=== PATIENT | male | born 1995 | race Caucasian/White ===

== ENCOUNTER 2017-05-03 05:15 | Emergency (ER) | payer OTHER ==
[~2017-05-03] VITALS: Ht 180.3 cm; Wt 66.1 kg
[2017-05-03 05:17] VITALS: TEMP 36.8; Ht 180.3 cm; Wt 66.1 kg
[2017-05-03] MEDS ORDERED: IBUPROFEN 600 MG TAB PO STA (05:22)
[2017-05-03] MEDS ORDERED: ALBUT/IPRATROP 3MG/0.5MG NEB 3 ML VIAL INH STA (05:22)
[2017-05-03 05:30] VITALS: O2SAT 97
[2017-05-03] MEDS ORDERED: ALBUTEROL HFA 8 GM INHALER INH ONE (05:30)
--- NOTE | 2017-05-03 05:52 | EMERGENCY ROOM VISIT NOTE ---
History First contact with patient: 05:17 Chief Complaint: FEVER Stated Complaint: FEVER/COUGH History of Present Illness The patient is a 21 year old male who presents to the Emergency Room with complaints of cough, congestion, runny nose for the past week who developed a low-grade temperature of 99.5 this morning. Patient was concerned and called EMS. He has not taken anything for his symptoms. He quit smoking one month ago. Patient is from [place] and has been here since January. Patient denies chest pain, dyspnea, neck stiffness, sore throat, abdominal pain, vomiting, diarrhea. Other people at school are sick. No travel outside the [place] within the past 3 months. Review of Systems See HPI for pertinent positives & negatives. A total of 10 systems reviewed and were otherwise negative. Past Medical/Surgical History None Social History Smoking Status: Former Smoker Drug Use: none Marital Status: single Occupation Status: [employer] student Current/Historical Medications No Active Prescriptions or Reported Meds Physical Exam Vital Signs Date Time Temp Pulse Resp B/P (MAP) Pulse Ox O2 Delivery O2 Flow Rate FiO2 05/03/17 05:30 97 Room Air 05/03/17 05:17 36.8 117 20 142/94 97 Room Air Physical Exam VITALS: Vitals are noted on the nurse's note and reviewed by myself. Vital signs stable. GENERAL: Pleasant male anxious-appearing, in no acute distress, nondiaphoretic, well-developed well-nourished. SKIN: The skin was without rashes, erythema, edema, or bruising. There is no tenting of the skin. Capillary reflex less than 2 seconds. HEAD: Normocephalic atraumatic. EARS: External auditory canals clear, tympanic membranes pearly nassar without erythema or effusion bilaterally. EYES: Pupils equal round and reactive to light and accommodation. Conjunctivae without injection, sclerae without icterus. Extraocular movements intact. NOSE: Patent, turbinates without inflammation or discharge. No sinus tenderness. MOUTH: Mucous membranes moist. Pharynx without erythema or exudate. Uvula midline. Airway patent. Tongue does not deviate. NECK: Supple without nuchal rigidity. No lymphadenopathy. No thyromegaly. Cervical spine is nontender. No JVD. No meningeal signs HEART: Regular rate and rhythm without murmurs gallops or rubs. LUNGS: Mild diffuse end expiratory wheezes, without rales or rhonchi. No dullness to percussion. No retractions or accessory muscle use. ABDOMEN: Positive bowel sounds x 4. Normal tympanic percussion. Soft, nontender, without masses or organomegaly. Molina sign negative. No guarding or rebound tenderness. MUSCULOSKELETAL: No muscle atrophy, erythema, or edema noted. NEURO: Patient was alert and oriented to person place and time. Normal sensation to light and sharp touch. No focal neurological deficits. Medical Decision & Procedures Medications Administered Medications (Trade) Dose Ordered Sig/Da Route Start Time Stop Time Status Last Admin Dose Admin Albuterol/ Ipratropium (Duoneb) 3 ml NOW STAT INH 05/03/17 05:22 05/03/17 05:24 DC 05/03/17 05:26 3 ML Ibuprofen (Motrin Tab) 600 mg NOW STAT PO 05/03/17 05:22 05/03/17 05:24 DC 05/03/17 05:27 600 MG Albuterol (Ventolin Hfa Inhaler) 2 puffs ONE ONCE INH 05/03/17 05:30 05/03/17 05:31 DC 05/03/17 05:28 2 PUFFS ED Course Prior records/ancillary studies reviewed. Triage Nursing notes reviewed. Additional history obtained from EMS. The patient's history was concerning for fever. Differential diagnosis: Etiologies such as viral syndrome, otitis, pharyngitis, pneumonia, influenza, meningitis, urinary tract infection, sepsis, bacteremia, as well as others were entertained. Physical examination: Patient is alert, oriented and well-appearing ER treatment provided: Nebulizer, Motrin On reassessment the patient felt better. Diagnostics interpreted by me: Imaging studies: Chest x-ray with no acute consolidation, pneumothorax or free air per my interpretation and reviewed by attending This appears to be consistent with acute bronchitis. Patient was neurovascularly and neurologically intact. He is well-appearing. Stable vital signs. He is advised take cold medicines as directed and to follow-up health services in a few days or here in the ER sooner for high fevers, lethargy, neck stiffness, worsening signs or symptoms or as needed. By the evaluation outlined above emergent etiologies such as otitis, pharyngitis, pneumonia, meningitis, urinary tract infection, sepsis, bacteremia, as well as others were deemed relatively unlikely. The pt informed about the findings as listed above. All questions were answered and pleased with the treatment. Return instructions were outlined and the patient was discharged in stable condition. Referral: The patient was referred back to their primary care physician for follow-up in 2 to 3 days for a recheck of the current condition. Medical Decision As above Medication Reconcilliation Current Medication List: was personally reviewed by me Blood Pressure Screening Patient's blood pressure: Normal blood pressure Impression Primary Impression: Acute bronchitis Departure Information Dispostion Home / Self-Care Condition GOOD Prescriptions No Active Prescriptions or Reported Meds Patient Instructions My [facility] Additional Instructions Acetaminophen(Tylenol) may be used for fever or pain. Use 1000mg every six hours as needed. Avoid using more than 3000mg in a 24 hour period. (AND/OR) Ibuprofen(Motrin, Advil) may be used for fever or pain. Use 600mg every six hours as needed. Take with food. Avoid using more than 2400mg in a 24 hour period. Do not use 2400mg per day for more than three consecutive days without physician direction. Prolonged inappropriate use can lead to stomach upset or ulcers. Afrin nasal spray: 2-3 sprays to each nostril twice daily as needed for congestion. Do not use for more than 3-4 days because it can lead to worsening rebound congestion. Pseudoephedrine(Sudaphed): 30-60mg every 6 hours as needed for nasal congestion. Do not take this with other stimulant products or supplements. Albuterol Inhaler: Take 2 puffs four times daily for seven days, then as needed. Rest and drink plenty of fluids. Controlling your fever with Tylenol and Ibuprofen as above will make you feel better. Wash your hands after nose blowing, sneezing, or coughing. Most germs are spread through contact, therefore improper hygiene may result in your close contacts and loved ones becoming ill just like you. Continue current medications. Return to the ER for severe headache, neck stiffness, chest pain, difficulty breathing, fevers, vomiting, worsening of your condition, or as needed. Follow up with your primary physician this week for a recheck of your current condition. Problem Qualifiers Primary Impression: Acute bronchitis Bronchitis organism: unspecified organism Qualified Codes: J20.9 - Acute bronchitis, unspecified
[2017-05-03 06:07] VITALS: BP 143/83; PULSE 116; O2SAT 96
--- NOTE | 2017-05-03 07:03 | DIAGNOSTIC IMAGING REPORT ---
CHEST 2 VIEWS ROUTINE CLINICAL HISTORY: Cough. Fever. COMPARISON STUDY: No previous studies for comparison. FINDINGS: Lung volumes are normal. No pneumothorax or pleural effusion is present. There is no consolidation. Pulmonary vascularity is normal. An azygos fissure is noted. Cardiomediastinal silhouette is normal. IMPRESSION: No acute cardiopulmonary findings. Electronically signed by: Elio Mccoy M.D. 05/03/2017 7:02 AM Dictated Date/Time: 05/03/2017 7:02 AM
== END 2017-05-03 06:10 | disposition home or self-care (01) ==
LOC: C.EDB 05:17
DX: J20.9 Acute bronchitis, unspecified (principal); Z87.891 Personal history of nicotine dependence

== ENCOUNTER 2017-05-05 11:51 | Emergency (ER) | payer OTHER ==
[~2017-05-05] VITALS: Ht 175.3 cm; Wt 68.9 kg
[2017-05-05 11:59] VITALS: TEMP 37.3; Ht 175.3 cm; Wt 68.9 kg
[2017-05-05] MEDS ORDERED: ACET-1256 PO (12:26)
[2017-05-05] MEDS ORDERED: VNTHFA/IN INH (12:26)
[2017-05-05] MEDS ORDERED: IBUP-103 PO (12:26)
--- NOTE | 2017-05-05 13:09 | DIAGNOSTIC IMAGING REPORT ---
CHEST 2 VIEWS ROUTINE CLINICAL HISTORY: 21 years-old Male presenting with cough eval for pna, sore throat, fever for 3 days. TECHNIQUE: PA and lateral views of the chest were obtained. COMPARISON: 05/03/2017. FINDINGS: Cardiomediastinal silhouette normal. Lungs and pleural spaces clear. Osseous structures normal. Upper abdomen normal. IMPRESSION: 1. No acute cardiopulmonary disease. Electronically signed by: Harish Grimm M.D. 05/05/2017 1:08 PM Dictated Date/Time: 05/05/2017 1:07 PM
[2017-05-05 13:26] VITALS: BP 114/69; PULSE 87; O2SAT 97
--- NOTE | 2017-05-05 13:59 | EMERGENCY ROOM VISIT NOTE ---
History Report prepared by Faviola: Genesis Shirley Under the Supervision of: Dr. Louis Thompson M.D. First contact with patient: 12:05 Chief Complaint: SORETHROAT Stated Complaint: PAIN IN THROAT, COUGH, FEVER History of Present Illness The patient is a 21 year old male who presents to the Emergency Room with complaints of persistent sore throat starting 2 days ago. The patient has been feeling sick for the past 2 weeks. He has had a cough, rhinorrhea, and nasal congestion. Two days ago, he started having an "extreme fever" of 99.5. He came to the ED at that time. He presents to the ED again because his symptoms are not improving and he is getting worse. He now has a sore throat and his chest hurts when he coughs. He denies any vomiting or abdominal pain. He denies any history of asthma or other medical problems. He is a [employer] student. He has some friends are sick, but notes that he is not that close with them. Source of History: patient Onset: 2 days ago Position: throat Quality: other (sore) Timing: other (persistent) Associated Symptoms: + fevers, + cough, No vomiting, No abdominal pain Note: Pt reports rhinorrhea, nasal congestion, chest pain with coughing. Review of Systems See HPI for pertinent positives & negatives. A total of 10 systems reviewed and were otherwise negative. Past Medical & Surgical Medical Problems: (1) No significant past medical history Family History No pertinent family history stated. Social History Smoking Status: Former Smoker Drug Use: none Marital Status: single Occupation Status: [employer] student Current/Historical Medications Scheduled PRN Acetaminophen (Tylenol), 1,000 MG PO Q6 PRN for Pain Albuterol Hfa (Ventolin Hfa), 2-4 PUFFS INH Q6H PRN for SOB/Wheezing Ibuprofen Tab (Advil), 200-600 MG PO Q4H PRN for Pain Allergies Coded Allergies: No Known Allergies (Unverified , 05/05/17) Physical Exam Vital Signs Date Time Temp Pulse Resp B/P (MAP) Pulse Ox O2 Delivery O2 Flow Rate FiO2 05/05/17 13:26 87 20 114/69 97 05/05/17 11:59 37.3 110 20 124/84 96 Room Air 05/05/17 11:59 96 Room Air Physical Exam He is well-appearing with an occasional cough. Constitutional: Vital signs reviewed. Eyes: Pupils are equal round reactive to light. Conjunctiva are noninjected. ENT: Pharynx is erythematous without exudate. Mucous membranes are moist. Neck supple without meningeal signs. Respiratory: Clear to auscultation bilaterally. Breath sounds are equal bilaterally. Cardiovascular: Regular rate and rhythm. No rubs or gallops. GI: Soft, nondistended and nontender. Bowel sounds are present. No splenomegaly. Musculoskeletal: No peripheral edema. No lower extremity tenderness. Integumentary: No cyanosis. Neurological: The patient is awake and alert. No focal deficits. Psychiatric: Normal affect. Medical Decision & Procedures ER Provider Diagnostic Interpretation: X-ray results as stated below per interpretation by me and the radiologist: CHEST 2 VIEWS ROUTINE CLINICAL HISTORY: 21 years-old Male presenting with cough eval for pna, sore throat, fever for 3 days. TECHNIQUE: PA and lateral views of the chest were obtained. COMPARISON: 05/03/2017. FINDINGS: Cardiomediastinal silhouette normal. Lungs and pleural spaces clear. Osseous structures normal. Upper abdomen normal. IMPRESSION: 1. No acute cardiopulmonary disease. Electronically signed by: Harish Grimm M.D. 05/05/2017 1:08 PM Dictated Date/Time: 05/05/2017 1:07 PM ED Course 1210: The patient was evaluated in room C2B. A complete history and physical exam was performed. 1311: Upon reevaluation, the patient was resting comfortably. I discussed tonight's findings with him. I answered all his questions. He declines antibiotics. He verbalized agreement of the treatment plan. He was discharged home. Medical Decision This is a 21-year-old male who presents with cold symptoms. Differential diagnosis includes strep pharyngitis, URI, bronchitis, pneumonia. I did perform a limited focused review of portions of the patient's old chart on the electronic medical record. The patient was here on the (2 days ago) for rhinorrhea and cough. He was treated with duoneb, and discharged with albuterol inhaler. I did evaluate the patient as noted above. He is presenting with cold symptoms for about 2 weeks. He has not had a temperature over 99.5. He is here today because he is not getting better and his cough is getting worse and he states his throat hurts more than it did when he left presenting here. I did obtain a rapid strep test which was negative. A throat culture was sent. I did order and personally review the patient's chest x-ray as described above. There is no evidence of pneumonia. I did discuss the test results with the patient. We discussed treatment with antibiotic given the prolonged course of his illness but the patient preferred not to have the antibiotics because he was concerned about the "risks." He was advised follow with [facility] and discharged in good condition. Medication Reconcilliation Current Medication List: was personally reviewed by me Blood Pressure Screening Patient's blood pressure: Normal blood pressure Blood pressure disposition: Did not require urgent referral Impression Primary Impression: Acute pharyngitis Additional Impression: Acute bronchitis Scribe Attestation The scribe's documentation has been prepared under my direct and personally reviewed by me in its entirety. I confirm that the note above accurately reflects all work, treatment, procedures, and medical decision making performed by me. Departure Information Dispostion Home / Self-Care Referrals No Doctor, Assigned (PCP) Forms HOME CARE DOCUMENTATION FORM, IMPORTANT VISIT INFORMATION Patient Instructions Bronchitis Acute, My [facility], Sore Throat - [facility] Additional Instructions You have been examined and treated today on an emergency basis only. This is not a substitute for, or an effort to provide, complete comprehensive medical care. It is impossible to recognize and treat all injuries or illnesses in a single emergency department visit. It is therefore important that you follow up closely with [facility]. Call as soon as possible for an appointment. Return for worsening symptoms or if you develop fever over 101, vomiting, difficulty breathing or any other concerning symptoms. Problem Qualifiers Primary Impression: Acute pharyngitis Pharyngitis/tonsillitis etiology: unspecified etiology Qualified Codes: J02.9 - Acute pharyngitis, unspecified Additional Impression: Acute bronchitis Bronchitis organism: unspecified organism Qualified Codes: J20.9 - Acute bronchitis, unspecified
[2017-05-06] MEDS ORDERED: AMOX500C3 PO (13:18)
== END 2017-05-05 13:28 | disposition home or self-care (01) ==
LOC: C.EDB 11:52 → C.EDC 13:28
DX: J02.9 Acute pharyngitis, unspecified (principal); J20.9 Acute bronchitis, unspecified; Z87.891 Personal history of nicotine dependence

== ENCOUNTER 2017-05-06 12:29 | Emergency (ER) | payer OTHER ==
[~2017-05-06] VITALS: Ht 175.3 cm; Wt 67.7 kg
[~2017-05-06 12:29] MED LIST: ACET-1256 PO; IBUP-103 PO; VNTHFA/IN INH
[2017-05-06 12:33] VITALS: TEMP 37; Ht 175.3 cm; Wt 67.7 kg
--- NOTE | 2017-05-06 13:16 | EMERGENCY ROOM VISIT NOTE ---
ED Visit Note First contact with patient: 13:03 CHIEF COMPLAINT: Sore throat / HISTORY OF PRESENT ILLNESS: This 21-year-old male presents the ER with chief complaint that he would like antibiotics. The patient was seen here yesterday for sore throat. He states he was offered antibiotics but declined. His rapid strep was negative. He states a culture was also taken. The patient states he was also seen here 3 days ago for a cough. He states that has not progressed although last night he was coughing and threw up on one occasion. He denies any nausea or vomiting today. The patient denies any fever. The patient states he continues to have a sore throat. REVIEW OF SYSTEMS: 6 system review was performed and was negative unless stated otherwise in history of present illness. PMH: The patient is healthy; there is no significant medical or surgical history. SOCIAL HISTORY: Patient is a [employer] student. The patient lives alone. The patient denies any tobacco or alcohol use. PHYSICAL EXAM: Vital Signs were reviewed: Reviewed Nurse's notes and agree. Oxygen saturation is 96 % on room air which is normal . GENERAL: 21-year-old male appears in no acute distress. MENTAL STATUS: Alert, oriented, coherent. EARS: Canals clear. TMs good light reflex, no erythema or fluid level noted. NOSE: Nasal mucosa with moderate erythema engorgement. PHARYNX: Moderate erythema, no edema noted. No exudate noted. Airway is adequate. NECK: Supple, non-tender. No lymphadenopathy noted. LUNGS: Clear to auscultation without wheezes rales or rhonchi. CARDIAC: Regular rate and rhythm without murmur. SKIN : No rashes noted. EMERGENCY COURSE: I reviewed the patient's EMR. His throat culture is now growing out strep. The patient was informed of this finding. He was discharged home in stable condition. DIAGNOSIS: Strep pharyngitis, acute bronchitis DISCHARGE INSTRUCTIONS & TREATMENT: Continue inhaler as needed for cough and wheezing. Take amoxicillin as prescribed. If symptoms persist or worsen, follow with [facility]. Current/Historical Medications Scheduled PRN Acetaminophen (Tylenol), 1,000 MG PO Q6 PRN for Pain Albuterol Hfa (Ventolin Hfa), 2-4 PUFFS INH Q6H PRN for SOB/Wheezing Ibuprofen Tab (Advil), 200-600 MG PO Q4H PRN for Pain Allergies Coded Allergies: No Known Allergies (Unverified , 05/05/17) Vital Signs Date Time Temp Pulse Resp B/P (MAP) Pulse Ox O2 Delivery O2 Flow Rate FiO2 05/06/17 12:33 37.0 115 20 127/76 96 Room Air Departure Information Referrals No Doctor, Assigned (PCP) Patient Instructions [facility]
[2017-05-06] MEDS ORDERED: AMOX500C3 PO (13:18)
[2017-05-06 13:26] VITALS: BP 117/75; PULSE 95; O2SAT 96
== END 2017-05-06 13:26 | disposition home or self-care (01) ==
LOC: C.EDB 12:32 → C.EDD 13:26
DX: J02.0 Streptococcal pharyngitis (principal); J20.9 Acute bronchitis, unspecified

== ENCOUNTER 2017-05-09 01:13 | Emergency (ER) | payer OTHER ==
[~2017-05-09] VITALS: Ht 175.3 cm; Wt 68.9 kg
[~2017-05-09 01:13] MED LIST changes: +AMOX500C3 PO
[2017-05-09 01:15] VITALS: TEMP 36.6; Ht 175.3 cm; Wt 68.9 kg
[2017-05-09] MEDS ORDERED: ALBUT/IPRATROP 3MG/0.5MG NEB 3 ML VIAL INH STA (01:26)
[2017-05-09 01:58] LABS: BASO % 0.1 %; BASO ABS # 0.01 K/uL (0-0.2); COMPLETE YES; EOS % 2.2 %; HEMATOCRIT 41.2 % (42-52); IG% 0.3 %; LYMPH % 46.8 %; LYMPH ABS # 3.33 K/uL (1.2-3.4); MEAN CELL VOLUME 82.2 fL (80-100); MEAN CORPUSCULAR HEMOGLOBIN 28.7 pg (25-34); MEAN PLATELET VOLUME 9.6 fL (7.4-10.4); MONO % 6.5 %; NEUT % 44.1 %; PLATELET COUNT 274 K/uL (130-400); RED BLOOD COUNT 5.01 M/uL (4.7-6.1); WHITE BLOOD COUNT 7.12 K/uL (4.8-10.8)
[2017-05-09 02:11] LABS: ALT/SGPT 25 U/L (12-78); AST/SGOT 16 U/L (15-37); BLOOD UREA NITROGEN 12 mg/dl (7-18); BUN/CREATININE RATIO 15.4 (10-20); CARBON DIOXIDE 30 mmol/L (21-32); CHLORIDE 107 mmol/L (98-107); CREATININE 0.79 mg/dl (0.60-1.40); GLUCOSE 132 mg/dl (70-99); POTASSIUM 3.6 mmol/L (3.5-5.1); SODIUM 142 mmol/L (136-145)
[2017-05-09 02:13] LABS: ALKALINE PHOSPHATASE 119 U/L (45-117)
[2017-05-09 02:31] VITALS: BP 133/80; PULSE 113; O2SAT 98
--- NOTE | 2017-05-09 02:45 | EMERGENCY ROOM VISIT NOTE ---
History First contact with patient: 01:19 Chief Complaint: ILLNESS Stated Complaint: ILLNESS History of Present Illness The patient is a 21 year old male who presents to the Emergency Room with complaints of cough, congestion and chest pain for the past few days. Patient states they're always feeling better but tonight he had an episode of difficulty breathing and chest pain which prompted him to come to the ER. This is now resolved. Patient had a negative strep test and was placed on antibiotics. Patient had a chest x-ray and laboratory workup with his last 3 visits which were all unremarkable. Patient's throat culture still negative. Patient states overall he is feeling better but was concerned tonight when he had chest pain and coughing and wheezing. Patient then called EMS and came here. Patient states he feels much better now. Patient denies current chest pain, dyspnea, headache, sore throat, abdominal pain, vomiting, diarrhea. Patient states he was just concerned and wants to make sure he is okay. Review of Systems See HPI for pertinent positives & negatives. A total of 10 systems reviewed and were otherwise negative. Past Medical/Surgical History Medical Problems: (1) No significant past medical history Social History Smoking Status: Former Smoker Drug Use: none Marital Status: single Occupation Status: [employer] Current/Historical Medications Scheduled Amoxicillin (Amoxil), 500 MG PO TID Scheduled PRN Acetaminophen (Tylenol), 1,000 MG PO Q6 PRN for Pain Albuterol Hfa (Ventolin Hfa), 2-4 PUFFS INH Q6H PRN for SOB/Wheezing Ibuprofen Tab (Advil), 200-600 MG PO Q4H PRN for Pain Physical Exam Vital Signs Date Time Temp Pulse Resp B/P (MAP) Pulse Ox O2 Delivery O2 Flow Rate FiO2 05/09/17 02:31 113 18 133/80 98 Room Air 05/09/17 01:49 Room Air 05/09/17 01:39 100 05/09/17 01:15 36.6 98 18 138/81 96 Room Air Physical Exam VITALS: Vitals are noted on the nurse's note and reviewed by myself. Vital signs stable. GENERAL: Pleasant anxious-appearing male, in no acute distress, nondiaphoretic, well-developed well-nourished. SKIN: The skin was without rashes, erythema, edema, or bruising. There is no tenting of the skin. Capillary reflex less than 2 seconds. HEAD: Normocephalic atraumatic. EARS: External auditory canals clear, tympanic membranes pearly nassar without erythema or effusion bilaterally. EYES: Pupils equal round and reactive to light and accommodation. Conjunctivae without injection, sclerae without icterus. Extraocular movements intact. NOSE: Patent, turbinates without inflammation or discharge. No sinus tenderness. MOUTH: Mucous membranes moist. Pharynx without erythema or exudate. Uvula midline. Airway patent. Tongue does not deviate. NECK: Supple without nuchal rigidity. No lymphadenopathy. No thyromegaly. Cervical spine is nontender. No JVD. HEART: Regular rate and rhythm without murmurs gallops or rubs. LUNGS: Clear to auscultation bilaterally without wheezes, rales or rhonchi. No dullness to percussion. No retractions or accessory muscle use. ABDOMEN: Positive bowel sounds x 4. Normal tympanic percussion. Soft, nontender, without masses or organomegaly. Molina sign negative. No guarding or rebound tenderness. MUSCULOSKELETAL: No muscle atrophy, erythema, or edema noted. NEURO: Patient was alert and oriented to person place and time. Normal sensation to light and sharp touch. No focal neurological deficits. Medical Decision & Procedures Laboratory Results 05/09/17 01:40 Red Blood Count 5.01, Mean Corpuscular Volume 82.2, Mean Corpuscular Hemoglobin 28.7, Mean Corpuscular Hemoglobin Concent 35.0, Mean Platelet Volume 9.6, Neutrophils (%) (Auto) 44.1, Lymphocytes (%) (Auto) 46.8, Monocytes (%) (Auto) 6.5, Eosinophils (%) (Auto) 2.2, Basophils (%) (Auto) 0.1, Neutrophils # (Auto) 3.14, Lymphocytes # (Auto) 3.33, Monocytes # (Auto) 0.46, Eosinophils # (Auto) 0.16, Basophils # (Auto) 0.01 05/09/17 01:40 Test 05/09/17 01:40 White Blood Count 7.12 K/uL (4.8-10.8) Red Blood Count 5.01 M/uL (4.7-6.1) Hemoglobin 14.4 g/dL (14.0-18.0) Hematocrit 41.2 % (42-52) Mean Corpuscular Volume 82.2 fL (80-100) Mean Corpuscular Hemoglobin 28.7 pg (25-34) Mean Corpuscular Hemoglobin Concent 35.0 g/dl (32-36) Platelet Count 274 K/uL (130-400) Mean Platelet Volume 9.6 fL (7.4-10.4) Neutrophils (%) (Auto) 44.1 % Lymphocytes (%) (Auto) 46.8 % Monocytes (%) (Auto) 6.5 % Eosinophils (%) (Auto) 2.2 % Basophils (%) (Auto) 0.1 % Neutrophils # (Auto) 3.14 K/uL (1.4-6.5) Lymphocytes # (Auto) 3.33 K/uL (1.2-3.4) Monocytes # (Auto) 0.46 K/uL (0.11-0.59) Eosinophils # (Auto) 0.16 K/uL (0-0.5) Basophils # (Auto) 0.01 K/uL (0-0.2) RDW Standard Deviation 36.2 fL (36.4-46.3) RDW Coefficient of Variation 12.1 % (11.5-14.5) Immature Granulocyte % (Auto) 0.3 % Immature Granulocyte # (Auto) 0.02 K/uL (0.00-0.02) Anion Gap 5.0 mmol/L (3-11) Est Creatinine Clear Calc Drug Dose 146.6 ml/min Estimated GFR () > 150.0 Estimated GFR (Non- 130.2 BUN/Creatinine Ratio 15.4 (10-20) Calcium Level 9.0 mg/dl (8.5-10.1) Total Bilirubin 0.6 mg/dl (0.2-1) Direct Bilirubin 0.2 mg/dl (0-0.2) Aspartate Amino Transf (AST/SGOT) 16 U/L (15-37) Alanine Aminotransferase (ALT/SGPT) 25 U/L (12-78) Alkaline Phosphatase 119 U/L (45-117) Total Protein 7.6 gm/dl (6.4-8.2) Albumin 4.0 gm/dl (3.4-5.0) Medications Administered Medications (Trade) Dose Ordered Sig/Da Route Start Time Stop Time Status Last Admin Dose Admin Albuterol/ Ipratropium (Duoneb) 3 ml NOW STAT INH 05/09/17 01:26 05/09/17 01:29 DC 05/09/17 01:47 3 ML ED Course Prior records/ancillary studies reviewed. Triage Nursing notes reviewed. Additional history obtained from EMS. The patient's history was concerning for chest pain. Differential diagnosis: Etiologies such as cardiac ischemia, aortic dissection, pulmonary embolism, pneumonia, pneumothorax, musculoskeletal, infections, pericarditis, myocarditis , esophageal rupture, gastrointestinal, as well as others were entertained. Physical examination: As above. ER treatment provided: Nebulizer On reassessment the patient felt better. Diagnostic interpretation by me: The electrocardiogram was negative for pathologic change. Normal sinus, normal intervals, no acute ST-T wave changes. Impression normal sinus rhythm interpreted by myself The labs revealed negative troponin. No leukocytosis Imaging studies: Chest x-ray with no acute consolidation, pneumothorax or free air per my interpretation Patient became extremely anxious and started crying and states that he did not want to go back home. He states that he would like to be a be admitted to the hospital. I informed him that there is no medical reason for him to be admitted. I did have him speak to Radha, the behavioral health counselor. She states that he is safe to be discharged home. Patient had no suicidal or homicidal ideations. He states he's is lonely. He states he is nervous about being sick by himself. He was advised to follow-up with [facility] at school as outlined by Radha. He verbalized understanding of this. Exam and history seem consistent with bronchitis and anxiety. Patient was neurovascularly and neurologically intact. Patient is well-appearing. Patient is tolerating fluids. Patient did not have an acute abdomen on exam. Patient was ambulating without difficulties. Patient was advised to follow-up with family care in a few days or here in the ER sooner for severe pain, fevers, chest pain, abdominal pain, worsening signs or symptoms or as needed. Patient states his main complaint in coming here as he did not know to do when he was anxious and feeling short of breath. This resolved and he feels much better and would like to leave. By the evaluation outlined above emergent etiologies such as cardiac ischemia, aortic dissection, pulmonary embolism, pneumonia, pneumothorax, infections, pericarditis, myocarditis, gastrointestinal, as well as others were deemed relatively unlikely. The pt informed about the findings as listed above. All questions were answered and pleased with the treatment. Return instructions were outlined and the patient was discharged in stable condition. Referral: The patient was referred back to health services / primary care physician for follow-up in 2 to 3 days for a recheck of the current condition. Case reviewed with my attending Medical Decision As above Medication Reconcilliation Current Medication List: was personally reviewed by me Blood Pressure Screening Patient's blood pressure: Normal blood pressure Impression Primary Impression: Acute bronchitis Additional Impression: Anxiety Departure Information Dispostion Home / Self-Care Condition GOOD Referrals No Doctor, Assigned (PCP) Patient Instructions My [facility] Additional Instructions Rest, decrease stress. Albuterol Inhaler: Take 2 puffs four times daily for five days, then as needed. Acetaminophen(Tylenol) may be used for fever or pain. Use 1000mg every six hours as needed. Avoid using more than 3000mg in a 24 hour period. (AND/OR) Ibuprofen(Motrin, Advil) may be used for fever or pain. Use 600mg every six hours as needed. Take with food. Avoid using more than 2400mg in a 24 hour period. Do not use 2400mg per day for more than three consecutive days without physician direction. Prolonged inappropriate use can lead to stomach upset or ulcers. Rest and drink plenty of fluids. Avoid smoke/smoking, fumes, dust, or any triggers in the past that may have affected your breathing. Continue current medications. Return to the ER for chest pain, difficulty breathing, fevers, vomiting, worsening of your condition, or as needed. Follow up with your primary physician this week for a recheck of your current condition. Problem Qualifiers Primary Impression: Acute bronchitis Bronchitis organism: unspecified organism Qualified Codes: J20.9 - Acute bronchitis, unspecified
--- NOTE | 2017-05-09 07:16 | DIAGNOSTIC IMAGING REPORT ---
SINGLE VIEW CHEST CLINICAL HISTORY: Dyspnea. Atypical chest pain. FINDINGS: An AP, portable, upright chest radiograph is compared to study dated 05/05/2017. The cardiomediastinal silhouette is unremarkable. The lungs and pleural spaces are clear. No pneumothorax is seen. The bony thorax is grossly intact. IMPRESSION: No active disease in the chest. Electronically signed by: Jaspreet Reddy M.D. 05/09/2017 7:14 AM Dictated Date/Time: 05/09/2017 7:14 AM
== END 2017-05-09 04:00 | disposition home or self-care (01) ==
LOC: C.EDB 01:14
DX: J20.9 Acute bronchitis, unspecified (principal); F41.9 Anxiety disorder, unspecified; Z87.891 Personal history of nicotine dependence

== ENCOUNTER 2017-05-25 12:36 | Emergency (ER) | payer OTHER ==
[~2017-05-25] VITALS: Ht 175.3 cm; Wt 66.7 kg
[~2017-05-25 12:36] MED LIST changes: -AMOX500C3 PO
[2017-05-25 12:38] VITALS: Ht 175.3 cm; Wt 66.7 kg
[2017-05-25 13:36] VITALS: BP 122/80; PULSE 80; TEMP 36.9; O2SAT 97
--- NOTE | 2017-05-25 16:52 | EMERGENCY ROOM VISIT NOTE ---
ED Visit Note First contact with patient: 13:08 CHIEF COMPLAINT: Sore throat HISTORY OF PRESENT ILLNESS: This 21-year-old male patient reports increasing pain in the throat over the last 4 days, gradual in onset. It is worse with swallowing. No fever, chills, or sweats. No rashes. Denies any posterior neck pain or stiffness. No difficulty breathing or shortness of breath. No ear pain, cough, or abdominal pain. Symptoms came on gradually. There has been no chest pain, no nausea or vomiting. No known ill contacts. Pain is 6/10. They have tried paracetamol for treatment. This is his fourth visit to the ED in the last 4 weeks. Several of these have been for sore throat. REVIEW OF SYSTEMS: HEENT: No dizziness, visual problems, hearing loss, or tinnitus. no oral lesions are present. LYMPH: No adenopathy. PULMONARY: No cough, shortness of breath, sputum production or hemoptysis. CARDIOVASCULAR: No chest pain, palpitations, shortness of breath or peripheral edema. GASTROINTESTINAL: No diarrhea, constipation, nausea, vomiting, or abdominal pain. GENITOURINARY: No dysuria, frequency, urgency or nocturia. NEUROLOGIC: No weakness, muscle tenderness, epilepsy or history of neurological problems. MUSCULOSKELETAL: No history of joint tenderness/swelling. No history of arthritis or arthralgias. SKIN: No rashes or lesions. PSYCHIATRIC: Positive history of anxiety. ENDOCRINE: No history of diabetes, thyroid disorders, or abnormal hair growth. Supplemental sheet was reviewed and signed. Previous surgeries: [place] tooth extraction Medical history: Significant for anxiety and history of bronchitis Current medications: Paracetamol Allergies: NKDA Family History: Noncontributory. Parents are living. SOCIAL HISTORY: Single. Lives by himself. Unemployed. [employer] student. No tobacco use, no EtOH use. PHYSICAL EXAM: Vital Signs: Afebrile. Reviewed and filed in patient's chart MENTAL STATUS: Alert and oriented. Skin:Warm and dry with good turgor. No rashes or lesions. No ecchymosis or erythema. The patient is not diaphoretic. No abrasions. HEENT: Normocephalic atraumatic. Eyes PERRLA, EOMI. No conjunctiva or scleral injection. Ears TMs intact bilaterally with good light reflexes. No erythema or bulging. No hemotympanum. Canals are patent. Nares patent bilaterally without turbinate enlargement. No significant drainage. No epistaxis. Oropharynx without erythema or exudate. Uvula midline, oral mucosa moist. No lesions present. Fair dentition. Lymphatics are palpated without anterior chain enlargement or tenderness. No posterior chain enlargement or tenderness. Heart: Heart RRR. No MGR. Peripheral pulses are 2+. Lungs: Lungs are clear to auscultation. No crackles , rhonchi, or wheezing. Good air movement. The patient is able to take a deep breath. Data: Rapid strep obtained today was negative. Back up cultures were sent. DIAGNOSIS: Acute viral pharyngitis. DISCHARGE INSTRUCTIONS & TREATMENT: Patient was educated regarding today's findings. Conservative care measures were discussed. He will be called if the back up cultures return positive. Maintain hydration. Cepacol lozenges may improve his discomfort. Tylenol and ibuprofen every 6 hours as needed for discomfort. Read the pharyngitis (sore throat) instruction sheet. Follow-up with [facility] services as needed. Current/Historical Medications Scheduled PRN Acetaminophen (Tylenol), 1,000 MG PO Q6 PRN for Pain Ibuprofen Tab (Advil), 200-600 MG PO Q4H PRN for Pain Allergies Coded Allergies: No Known Allergies (Unverified , 05/25/17) Vital Signs Date Time Temp Pulse Resp B/P (MAP) Pulse Ox O2 Delivery O2 Flow Rate FiO2 05/25/17 13:36 36.9 80 18 122/80 97 05/25/17 12:38 36.9 82 18 127/78 96 Room Air Departure Information Impression Primary Impression: Sore throat Dispostion Home / Self-Care Condition GOOD Forms WORK / SCHOOL INSTRUCTIONS, HOME CARE DOCUMENTATION FORM, MOTRIN USE, TYLENOL USE, IMPORTANT VISIT INFORMATION Patient Instructions Sore Throat - [facility], [facility] Additional Instructions You will be called if the cultures return positive Maintain hydration Cepacol lozenges or spray may improve your discomfort Tylenol and Motrin every 6 hours as needed for discomfort Follow up with [facility] as needed
--- NOTE | 2017-05-28 18:22 | Pharmacy Progress Note ---
ED Pharmacist Culture FollowUp Date of Service: May 28, 2017. Patient with positive throat culture for group F strep. It should be noted that the patient has been seen 4 times in the last few weeks with related issues and was most recently treated at the end of April with a 10 day course of amoxicillin despite a negative throat culture. Tried to call the patient 3 times yesterday and did not get through to him until today when I called a fourth time. He reported marked improvement of sore throat but not complete symptom resolution. I informed him of result and gave him the option of an antibiotic course (cephalexin 500mg BID X 10 days) or to hold off given vast improvement of symptoms. He opted to hold off for now but gave him our phone number and told him to call back if symptoms do not completely improve in the next few day and we can call in the prescription at that time. Case was discussed with Dr. Haynes.
== END 2017-05-25 13:38 | disposition home or self-care (01) ==
LOC: C.EDB 12:37 → C.EDD 13:38
DX: J02.9 Acute pharyngitis, unspecified (principal); F41.9 Anxiety disorder, unspecified

== ENCOUNTER 2017-08-25 17:33 | Emergency (ER) | payer OTHER ==
[~2017-08-25] VITALS: Ht 175.3 cm; Wt 77.2 kg
[~2017-08-25 17:33] MED LIST changes: +AMOXICILLIN 500 MG CAP PO SCH; -VNTHFA/IN INH
[2017-08-25 17:36] VITALS: BP 132/89; PULSE 89; TEMP 36.9; O2SAT 95; Ht 175.3 cm; Wt 77.2 kg
[2017-08-25] MEDS ORDERED: AMOXICILLIN 500 MG CAP PO STA ×2 (17:52)
[2017-08-25] MEDS ORDERED: PSEUDOEPHEDRINE HCL 30 MG TAB PO STA (17:52)
[2017-08-25] MEDS ORDERED: AMX500 PO (18:00)
--- NOTE | 2017-08-25 18:02 | EMERGENCY ROOM VISIT NOTE ---
History First contact with patient: 17:44 Chief Complaint: EAR PAIN Stated Complaint: CLOGGED EAR AFTER FLIGHT/COLD History of Present Illness The patient is a 21 year old male who presents to the Emergency Room via private vehicle with complaints of "clogged ear after flight/cold". The patient states that [place] he developed cold like symptoms to include sinus congestion, cough and sore throat. He notes now a sore throat has nearly resolved over now his right ear feels clogged. There is intermittent pain. He denies any fevers or chills. No production to the cough. Review of Systems A complete 6-point Review of Systems was discussed with the patient, with pertinent positives and negatives listed in the History of Present Illness. All remaining Review of Systems questions can be considered negative unless otherwise specified. Past Medical/Surgical History Medical Problems: (1) No significant past medical history Social History Smoking Status: Current Some Day Smoker Drug Use: none Marital Status: single Occupation Status: [employer] student Current/Historical Medications Scheduled Amoxicillin (Amoxicillin), 500 MG PO TID Sertraline (Zoloft), 75 MG PO DAILY Physical Exam Vital Signs Date Time Temp Pulse Resp B/P (MAP) Pulse Ox O2 Delivery O2 Flow Rate FiO2 08/25/17 17:36 36.9 89 18 132/89 95 Room Air Physical Exam VITAL SIGNS - Vital signs and nursing notes were reviewed. Stable. Afebrile. Nontoxic tachycardic and saturating well on room air 95%. GENERAL -21-year-old male appearing his stated age who is in no acute distress. Communicates well with provider and answers questions appropriately. SKIN - Without rashes. No petechial rashes. HEAD - NC/AT. EYES - Sclera anicteric. No conjunctivae is noted. EARS - No deformities of external structures noted on gross examination bilaterally. Left ear within normal limits. Right ear reveals a normal canal, however the TM is retracted, with areas that are slightly bulging, with a fluid level behind. This is consistent with developing otitis media. NOSE - Midline and without cyanosis. No epistaxis or purulent drainage noted. MOUTH/OROPHARYNX - Without perioral cyanosis. Buccal mucosa pink and moist and without leukoplakia. Tongue midline with equal elevation of palate bilaterally. No tonsillar hypertrophy, erythema, or exudates noted. Fair dentition noted. LUNGS - Chest wall symmetric without accessory muscle use, intercostals retractions, or central cyanosis. Normal vesicular breath sounds CTA B/L. No wheezes, rales, or rhonchi appreciated. CARDIAC - RRR with S1/S2. No murmur, rubs, or gallops appreciated. Medical Decision & Procedures Medications Administered Medications (Trade) Dose Ordered Sig/Da Route Start Time Stop Time Status Last Admin Dose Admin Pseudoephedrine HCl (Sudafed Tab) 30 mg NOW STAT PO 08/25/17 17:52 08/25/17 17:54 DC 08/25/17 18:23 30 MG Amoxicillin (Amoxil Cap) 500 mg NOW STAT PO 08/25/17 17:52 08/25/17 17:54 DC 08/25/17 18:23 500 MG Medical Decision Patient was seen and evaluated as above. He presents to us today with right ear pain, and cough. He is well on exam. He is nontoxic. He is hemodynamically stable. Right ear reveals questionable otitis media developing. I will treat this with antibiotics given the clinical presentation. He'll be given amoxicillin 500 mg 3 times a day for 10 days. He will also be given Sudafed. He is to take [id number] decongestants. He is to follow-up with [facility] or return here if worsening. He was educated upon management, educated upon worrisome symptoms which to return, had questions about discharge, and was discharged home in good condition. In the evaluation and treatment of this patient following differential diagnoses were entertained: Otitis media, otitis externa, mastoiditis, among others. There is no pain to palpation behind the right ear. Therefore no evidence of mastoiditis. No evidence of meningitis or encephalitis on exam. He is well-appearing. Impression Primary Impression: Otitis media Additional Impression: Eustachian tube dysfunction Departure Information Dispostion Home / Self-Care Condition GOOD Prescriptions Amoxicillin (Amoxicillin) 500 Mg Cap 500 MG PO TID for 9 Days, #27 TABS Prov: Octavio Pang PA-C 08/25/17 Referrals No Doctor, Assigned (PCP) Patient Instructions My [facility] Additional Instructions You have been treated in the Emergency Department for an Inner Ear Infection ( Otitis Media) and blockage of your eustachian tube causing pressure in the right ear. You were prescribed amoxicillin to be taken every 8 hours. This is an antibiotic. Your first 24 hour supply was given 2 here with the remainder sent to the pharmacy for pickup All antibiotics have the potential to cause diarrhea. Stop this medication and contact a medical provider if you were to develop any significant adverse side effects including: wheezing, shortness of breath, passing out, vomiting, or a diffuse rash. Always take antibiotics as directed and COMPLETE the ENTIRE course regardless of the improvement of your symptoms. I recommended [id number] decongestant. These can be found in the pharmacy section of most stores. You were given pseudophed here. For pain and fever control, you can use the following [id number] medicines (if >12 yo): - Regular strength (325mg/tab) Tylenol (acetaminophen) 2 tabs every 4-6 hours as needed. Do not exceed 12 tablets in a 24 hour period. Avoid taking more than 3 grams (3000 mg) of Tylenol per day. This includes any other sources of acetaminophen you may take on a regular basis. - Regular strength (200 mg/tab) Advil (ibuprofen) 1-2 tabs every 4-6 hours as needed. Do not exceed a dose of 3200 mg per day. You should follow-up with your Primary Care Provider from today's Emergency Department visit. Return to the emergency department if you develop the following symptoms despite treatment course outlined above: headache, fever, intractable pain, increased redness, swelling, or purulent discharge. Please return with any new/concerning symptoms. Problem Qualifiers
[2017-08-25] MEDS ORDERED: SERT50TA PO (18:08)
== END 2017-08-25 18:20 | disposition home or self-care (01) ==
LOC: C.EDB 17:33 → C.EDD 18:20
DX: H66.91 Otitis media, unspecified, right ear (principal); H69.91 Unspecified Eustachian tube disorder, right ear; F17.200 Nicotine dependence, unspecified, uncomplicated

== ENCOUNTER 2017-10-31 23:28 | Emergency (ER) | payer OTHER ==
[~2017-10-31] VITALS: Ht 177.8 cm; Wt 80.5 kg
[~2017-10-31 23:28] MED LIST changes: -ACET-1256 PO; -AMOXICILLIN 500 MG CAP PO SCH; -IBUP-103 PO; +SERT50TA PO
[2017-10-31 23:35] VITALS: TEMP 36.9; Ht 177.8 cm; Wt 80.5 kg
[2017-11-01 00:17] VITALS: BP 124/79; PULSE 78; O2SAT 97
--- NOTE | 2017-11-01 00:58 | EMERGENCY ROOM VISIT NOTE ---
History Report prepared by Snehaibmichoacano: Armando Parisi Under the Supervision of: Dr. Ovidio Chatterjee D.O. First contact with patient: 23:39 Chief Complaint: SORETHROAT Stated Complaint: SORE THROAT, RUNNY NOSE History of Present Illness The patient is a 22 year old male who presents to the Emergency Room with complaints of a constant sore throat that started three days ago. He rates his discomfort as a 5/10 in severity. The patient states that he has been having difficulty with swallowing. Pain is worse on the right side of his throat. Describes it as a sharp pain. Worse with swallowing. No significant remitting factors. He reports that he has also been experiencing rhinorrhea. The patient denies headache, cough, ear pain, change in vision, fevers, chest pain, shortness of breath, nausea, vomiting, diarrhea, pain with urination, and melena. He reports that his shots are up to date. Source of History: patient Onset: three days ago Position: throat Symptom Intensity: 5/10 Quality: other (sore) Timing: constant Associated Symptoms: No fevers, No headache, No cough, No chest pain, No SOB , No nausea, No vomiting, No melena, No diarrhea, No urinary symptoms Review of Systems See HPI for pertinent positives & negatives. A total of 10 systems reviewed and were otherwise negative. Past Medical & Surgical Medical Problems: (1) No significant past medical history Surgical Problems: (1) [place] teeth extracted Family History Diabetes mellitus Social History Smoking Status: Current Some Day Smoker Drug Use: none Marital Status: single Occupation Status: [employer] student Current/Historical Medications Scheduled Sertraline (Zoloft), 100 MG PO DAILY Allergies Coded Allergies: No Known Allergies (Unverified , 10/31/17) Physical Exam Vital Signs Date Time Temp Pulse Resp B/P (MAP) Pulse Ox O2 Delivery O2 Flow Rate FiO2 11/01/17 00:17 78 18 124/79 97 Room Air 10/31/17 23:36 97 Room Air 10/31/17 23:35 36.9 79 18 125/71 96 Room Air Physical Exam GENERAL: Sitting up in bed, alert, well appearing, well nourished, no distress, non-toxic EYE EXAM: normal conjunctiva. EAR EXAM: TMs clear bilaterally. OROPHARYNX: no exudate, lips, buccal mucosa, and tongue normal and mucous membranes are moist with mild erythema in the posterior pharynx NECK: supple, no nuchal rigidity, no adenopathy, non-tender, no stridor LUNGS: Clear to auscultation. Normal chest wall mechanics HEART: no murmurs, S1 normal and S2 normal ABDOMEN: abdomen soft, non-tender, normo-active bowel sounds, no masses, no rebound or guarding. UPPER EXTREMITIES: upper extremities are grossly normal. LOWER EXTREMITIES: No pitting edema. NEURO EXAM: Normal sensorium. Medical Decision & Procedures ED Course ED COURSE: Vital signs were reviewed and showed normal The patients medical record was reviewed The above diagnostic studies were performed and reviewed. ED treatments and interventions as stated above. 2339: The patient was evaluated in room C01B. A complete history and physical examination was performed. 0012: Upon reevaluation, the patient is resting comfortably. I discussed my findings with the patient and he understands and agrees with the treatment plan. Based on the patients age, coexisting illnesses, exam and lab findings the decision to treat as an outpatient was made. The patient remained stable while under my care. The patient appeared well at the time of discharge. Medical Decision Differential diagnosis includes etiologies such as viral syndrome, tonsillitis, streptococcal pharyngitis, mononucleosis, peritonsillar abscess, retropharyngeal abscess, otitis, pneumonia, influenza, as well as others were entertained. Patient is a 22-year-old male who presents the ER for sore throat. Has been present for the past 3 days. Associated with a runny nose. No other symptoms. Shots are up-to-date. Vitals are stable. Afebrile. Throat has mild erythema. No significant exudates. With his runny nose we did elect to perform a rapid strep which was negative. Sent for culture. Patient was discharged to follow-up with expectant management and will receive a phone call if it comes back positive with antibiotics. Discussed with Pt concerning signs and symptoms to watch out for. Pt was instructed to follow up with their PCP and discussed with the patient their option to return to the ED at anytime for persistent or worsening symptoms. The appropriate anticipatory guidance and out- patient management, including indications for return to the emergency department , were explained at length to the patient and understood. Medication Reconcilliation Current Medication List: was personally reviewed by me Blood Pressure Screening Patient's blood pressure: Normal blood pressure Impression Primary Impression: Pharyngitis Scribe Attestation The scribe's documentation has been prepared under my direction and personally reviewed by me in its entirety. I confirm that the note above accurately reflects all work, treatment, procedures, and medical decision making performed by me. Departure Information Dispostion Home / Self-Care Referrals No Doctor, Assigned (PCP) Forms HOME CARE DOCUMENTATION FORM, IMPORTANT VISIT INFORMATION Patient Instructions ED Pharyngitis Viral Report Pending, My [facility] Additional Instructions Please follow up with your primary care doctor or if you are a student, [facility] with in the next 24 hours. Any worsening of your symptoms, please return to the ED immediately. This includes any fevers greater than 100.4, worsening pain, chest pain, shortness breath, persistent nausea, vomiting, unable to eat or drink, or any other concerning signs or symptoms from your standpoint. Please take Tylenol or Motrin as needed for pain. Culture will result within 24 hours. If it comes back positive you will receive a call and be placed on antibiotics. Problem Qualifiers Primary Impression: Pharyngitis Pharyngitis/tonsillitis etiology: unspecified etiology Qualified Codes: J02.9 - Acute pharyngitis, unspecified
== END 2017-11-01 00:18 | disposition home or self-care (01) ==
LOC: C.EDB 23:29 → C.EDC 11-01 00:18
DX: J02.9 Acute pharyngitis, unspecified (principal); J34.89 Other specified disorders of nose and nasal sinuses; F17.200 Nicotine dependence, unspecified, uncomplicated; Z83.3 Family history of diabetes mellitus

== ENCOUNTER 2017-12-02 20:50 | Emergency (ER) | payer OTHER ==
[~2017-12-02] VITALS: Ht 177.8 cm; Wt 82.9 kg
[2017-12-02 20:54] VITALS: TEMP 36.8; Ht 177.8 cm; Wt 82.9 kg
--- NOTE | 2017-12-02 21:54 | DIAGNOSTIC IMAGING REPORT ---
CHEST 2 VIEWS ROUTINE HISTORY: 22 years-old Male cough acute cough COMPARISON: Chest radiographs 10/11/2017 TECHNIQUE: PA and lateral views of the chest FINDINGS: Cardiomediastinal and hilar silhouettes are within normal limits. Azygos lobe and fissure noted. No pneumothorax, pleural effusion, focal airspace consolidation or overt pulmonary edema. Bones of the chest appear grossly intact. IMPRESSION: No acute process. The above report was generated using voice recognition software. It may contain grammatical, syntax or spelling errors. Electronically signed by: David Hill M.D. 12/02/2017 9:53 PM Dictated Date/Time: 12/02/2017 9:51 PM
[2017-12-02] MEDS ORDERED: PENI500T2 PO (22:20)
[2017-12-02 22:35] VITALS: BP 120/78; PULSE 90; O2SAT 95
--- NOTE | 2017-12-02 22:35 | EMERGENCY ROOM VISIT NOTE ---
History Report prepared by Faviola: Genesis Shirley Under the Supervision of: Dr. William Chan D.O. First contact with patient: 21:00 Chief Complaint: SORETHROAT Stated Complaint: COUGH, SORE THROAT History of Present Illness The patient is a 22 year old male who presents to the Emergency Room with complaints of persistent sore throat starting 2 days ago. Yesterday he developed a cough and chest pain. He has had some chills. He had some nausea this morning. He denies any fever, vomiting, or abdominal pain. He uses tobacco sometimes. He denies any sick contacts. Source of History: patient Onset: 2 days ago Position: throat Quality: other (sore) Timing: other (persistent) Associated Symptoms: + chills, + cough, + chest pain, + nausea, No fevers, No vomiting, No abdominal pain Review of Systems See HPI for pertinent positives & negatives. A total of 10 systems reviewed and were otherwise negative. Past Medical & Surgical Medical Problems: (1) No significant past medical history Surgical Problems: (1) [place] teeth extracted Family History Diabetes mellitus Social History Smoking Status: Current Some Day Smoker Drug Use: none Housing Status: lives alone Occupation Status: [employer] student Current/Historical Medications Scheduled Penicillin V Potassium (Veetids), 1 TAB PO TID Sertraline (Zoloft), 100 MG PO DAILY Allergies Coded Allergies: No Known Allergies (Unverified , 10/31/17) Physical Exam Vital Signs Date Time Temp Pulse Resp B/P (MAP) Pulse Ox O2 Delivery O2 Flow Rate FiO2 12/02/17 22:35 90 16 120/78 95 12/02/17 20:54 36.8 96 16 125/86 95 Room Air Physical Exam GENERAL: Patient is awake, alert, and in no acute distress. Patient is resting comfortably and showing no signs of anxiety EYES: The conjunctivae are clear. The pupils are round and reactive. EARS, NOSE, MOUTH AND THROAT: TMs clear bilaterally. Mild erythema in the posterior oropharynx. No exudate or peritonsillar mass. NECK: The neck is nontender and supple. RESPIRATORY: Normal respiratory effort is noted there is no evidence of wheezing rhonchi or rales CARDIOVASCULAR: Regular rate and rhythm noted there no murmurs rubs or gallops normal S1 normal S2 GASTROINTESTINAL: The abdomen is soft. Bowel sounds are present in all quadrants. Abdomen is nontender MUSCULOSKELETAL/EXTREMITIES: There is no evidence of gross deformity full range of motion is noted in the hips and shoulders SKIN: There is no obvious evidence of any rash. There are no petechiae, pallor or cyanosis noted. NEUROLOGIC: Patient is awake alert and oriented x3 Medical Decision & Procedures ER Provider Diagnostic Interpretation: X-ray results as stated below per interpretation by me and the radiologist. CHEST 2 VIEWS ROUTINE HISTORY: 22 years-old Male cough acute cough COMPARISON: Chest radiographs 10/11/2017 TECHNIQUE: PA and lateral views of the chest FINDINGS: Cardiomediastinal and hilar silhouettes are within normal limits. Azygos lobe and fissure noted. No pneumothorax, pleural effusion, focal airspace consolidation or overt pulmonary edema. Bones of the chest appear grossly intact. IMPRESSION: No acute process. The above report was generated using voice recognition software. It may contain grammatical, syntax or spelling errors. Electronically signed by: David Hill M.D. 12/02/2017 9:53 PM Dictated Date/Time: 12/02/2017 9:51 PM ED Course 2121: The patient was evaluated in room B12B. A complete history and physical examination were performed. 2225: Upon reevaluation, the patient is resting comfortably. I discussed the results and treatment plan with him. He verbalized agreement of the treatment plan. He was discharged home. Medical Decision Prior records/ancillary studies reviewed. Triage Nursing notes reviewed. The patient's history was concerning for a sore throat. Differential diagnosis: Etiologies such as viral syndrome, tonsillitis, streptococcal pharyngitis, mononucleosis, peritonsillar abscess, retropharyngeal abscess, otitis, pneumonia , influenza, as well as others were entertained. The patient is a 22-year-old male who presented to the emergency department for an evaluation of sore throat. The patient did not appear to have signs of voice changes or peritonsillar mass. The patient was encouraged to continue using Motrin and Tylenol for pain as well as drinking plenty clear liquids. I also encouraged him to start the antibiotic prescription in 2 days if symptoms have not improved. I also encouraged him to follow-up with S but return the emergency department immediately if symptoms change worsen or the need arises. Medication Reconcilliation Current Medication List: was personally reviewed by me Blood Pressure Screening Patient's blood pressure: Normal blood pressure Blood pressure disposition: Did not require urgent referral Impression Primary Impression: Pharyngitis Scribe Attestation The scribe's documentation has been prepared under my direction and personally reviewed by me in its entirety. I confirm that the note above accurately reflects all work, treatment, procedures, and medical decision making performed by me. Departure Information Dispostion Home / Self-Care Prescriptions Penicillin V Potassium (VEETIDS) 500 Mg Tab 1 TAB PO TID for 10 Days, #30 TAB Prov: William Chan, DO 12/02/17 Referrals [facility] Forms HOME CARE DOCUMENTATION FORM, IMPORTANT VISIT INFORMATION Patient Instructions ED Strep Pharyngitis Isaias, My [facility] Additional Instructions Continue using Motrin and Tylenol as directed for pain. Drink plenty clear liquids. Follow-up with [facility] for reevaluation. If symptoms are not improved in 48 hours I would recommend starting the antibiotic prescription.
== END 2017-12-02 22:37 | disposition home or self-care (01) ==
LOC: C.EDB 20:51
DX: J02.9 Acute pharyngitis, unspecified (principal); Z83.3 Family history of diabetes mellitus; F17.210 Nicotine dependence, cigarettes, uncomplicated; Z79.899 Other long term (current) drug therapy